=== PATIENT | female | born 1995 | race African-American/Black ===

== ENCOUNTER 2019-04-28 10:55 | Inpatient (IN) | payer OTHER ==
[~2019-04-28] VITALS: Ht 160 cm; Wt 95.3 kg
[2019-04-28] MEDS ORDERED: NALBUPHINE HCL 10 MG/ML AMP IVP PRN (11:00)
[2019-04-28] MEDS ORDERED: TERBUTALINE SULFATE 1 MG/ML VIAL SUBCUT ONE (11:00)
[2019-04-28] MEDS ORDERED: OXYTOCIN/0.9 % SODIUM CHLORIDE 1,000 ML IV SCH (11:00)
[2019-04-28] MEDS ORDERED: LR 1,000 ML IV ONE (11:00)
[2019-04-28 11:33] LABS: BASOPHILS % (AUTO) 0.2 % (0.0-2.0); EOSINOPHILS % (AUTO) 0.1 % (0.0-4.0); HEMATOCRIT 29.8 % (36-48); HEMOGLOBIN 9.7 g/dL (12.0-16.0); LYMPHOCYTES # (AUTO) 1.2 K/uL (1.0-5.5); LYMPHOCYTES % (AUTO) 8.2 % (20.5-51.5); MEAN CORPUSCULAR HEMOGLOBIN 26 pg (27-31); MEAN CORPUSCULAR HGB CONC 33 % (32-36); MEAN CORPUSCULAR VOLUME 78 fL (79.0-98.0); MONOCYTES # (AUTO) 0.9 K/uL (0.0-1.0); MONOCYTES % (AUTO) 6.3 % (1.7-9.3); NEUTROPHILS # (AUTO) 12.1 K/uL (1.8-7.7); NEUTROPHILS % (AUTO) 85.2 % (40.0-70.0); PLATELET COUNT (AUTO) 348 K/uL (130-430); RED BLOOD CELL COUNT(AUTO) 3.81 MIL/uL (4.2-6.2); RED CELL DISTRIBUTION WIDTH 15.3 % (9.0-15.0); WHITE BLOOD COUNT (AUTO) 14.2 K/uL (4.8-10.8)
[2019-04-28] MEDS ORDERED: ROPIVACAINE HCL/PF 0.2% 200 ML ONE (12:20)
[2019-04-28] MEDS ORDERED: fentaNYL CITRATE/PF 100 MCG/2 ML AMP ONE ×2 (12:21→20:53)
[2019-04-28] MEDS: LR 1,000 ML IV SCH ×3 (12:30→20:21)
[2019-04-28] MEDS ORDERED: LR 500 ML IV ONE (12:42)
[2019-04-28] MEDS ORDERED: FENT2mCg/mL-ROPIVA0.2%/NS EPID 200 ML EP SCH (12:45)
[2019-04-28] MEDS ORDERED: fentaNYL CITRATE/PF 100 MCG/2 ML AMP EP ONE (12:45)
[2019-04-28] MEDS ORDERED: ePHEDrine sulfate 50 MG/ML VIAL IVP PRN (12:45)
[2019-04-28] MEDS ORDERED: ROPIVACAINE 40 MG/20 ML AMP EP ONE (16:24)
[2019-04-28 18:28] VITALS: BP_SYST 133
[2019-04-28] MEDS ORDERED: ROPIVACAINE HCL/PF 0.2% 100 ML ONE (20:52)
[2019-04-28] MEDS: ACETAMINOPHEN 325 MG TABLET PO PRN (21:24)
[2019-04-28] MEDS ORDERED: AMPICILLIN SODIUM 2 GM in NS 100 ML IV ONE (21:30)
[2019-04-28] MEDS ORDERED: AMPICILLIN SODIUM 2 GM VIAL ONE (21:35)
[2019-04-28] MEDS ORDERED: ACETAMINOPHEN 325 MG TABLET ONE (21:35)
[2019-04-28] MEDS ORDERED: OXYTOCIN 10 UNIT/ML VIAL IM ONE (22:45)
[2019-04-29] MEDS: AMPICILLIN SODIUM 1 GM in NS 50 ML IV SCH ×3 (01:19→09:24)
[2019-04-29] MEDS: ACETAMINOPHEN 325 MG TABLET PO PRN (01:20)
[2019-04-29] MEDS ORDERED: AMPICILLIN SODIUM 1 GM VIAL ONE ×2 (01:29→05:32)
[2019-04-29] MEDS ORDERED: OXYTOCIN/0.9 % SODIUM CHLORIDE 1,000 ML IV ONE (01:47)
[2019-04-29] MEDS ORDERED: OXYTOCIN/0.9 % SODIUM CHLORIDE 1,000 ML IV SCH (01:47)
[2019-04-29] MEDS ORDERED: DERMOPLAST SPRAY TP PRN (02:00)
[2019-04-29] MEDS ORDERED: HYDROCORTISONE 0.5%, 28.35 GM TOPICAL CREAM TP PRN (02:00)
[2019-04-29] MEDS ORDERED: DIPH-TET-PERTUS Vaccine 0.5 ML VIAL (ADACEL) I.M. PRN (02:00)
[2019-04-29] MEDS ORDERED: SENNOSIDES/DOCUSATE SODIUM 1 TAB TABLET(SENOKOT-S) PO PRN (02:00)
[2019-04-29] MEDS ORDERED: ACETAMINOPHEN 325 MG TABLET PO PRN (02:00)
[2019-04-29] MEDS ORDERED: DOCUSATE SODIUM 100 MG CAPSULE PO PRN (02:00)
[2019-04-29] MEDS ORDERED: ANUSOL 1 EA SUPP.RECT (PREPARATION H) RC PRN (02:00)
[2019-04-29] MEDS ORDERED: MEASLES,MUMPS&RUBELLA VACC/PF 12500 UNIT/0.5 ML VIAL SUBQ PRN (02:00)
[2019-04-29] MEDS ORDERED: OXYCODONE/ACETAMINOPHEN 5-325 TABLET PO PRN (02:00)
[2019-04-29] MEDS ORDERED: LANOLIN 7 GM OINT. TP PRN (02:00)
[2019-04-29] MEDS: IBUPROFEN 600 MG TABLET PO SCH ×3 (05:36→17:45)
[2019-04-29] MEDS: OXYCODONE/ACETAMINOPHEN 5-325 TABLET PO PRN ×2 (17:45→21:05)
[2019-04-30] MEDS: IBUPROFEN 600 MG TABLET PO SCH ×3 (00:10→12:29)
[2019-04-30 08:12] LABS: BASOPHILS % (AUTO) 0.2 % (0.0-2.0); HEMATOCRIT 28.7 % (36-48); HEMOGLOBIN 9.1 g/dL (12.0-16.0); LYMPHOCYTES # (AUTO) 0.6 K/uL (1.0-5.5); LYMPHOCYTES % (AUTO) 4.9 % (20.5-51.5); MEAN CORPUSCULAR HEMOGLOBIN 25 pg (27-31); MEAN CORPUSCULAR HGB CONC 32 % (32-36); MEAN CORPUSCULAR VOLUME 79 fL (79.0-98.0); MONOCYTES # (AUTO) 0.7 K/uL (0.0-1.0); MONOCYTES % (AUTO) 5.8 % (1.7-9.3); NEUTROPHILS # (AUTO) 11.4 K/uL (1.8-7.7); NEUTROPHILS % (AUTO) 89.1 % (40.0-70.0); PLATELET COUNT (AUTO) 287 K/uL (130-430); RED BLOOD CELL COUNT(AUTO) 3.62 MIL/uL (4.2-6.2); RED CELL DISTRIBUTION WIDTH 15.6 % (9.0-15.0); WHITE BLOOD COUNT (AUTO) 12.8 K/uL (4.8-10.8)
== END 2019-04-30 15:25 | disposition home or self-care (01) | DRG 560 ==
LOC: SPU 10:55 → OBSVTOIN 10:55
PROVIDERS: ADMIT Obstetrics & Gynecology; ATTEND Obstetrics & Gynecology
PROC: 10E0XZZ Delivery of Products of Conception, External Approach (ICD-10-PCS; principal; 2019-04-29)
PROC: 3E0R3BZ Introduction of Anesthetic Agent into Spinal Canal, Percutaneous Approach (ICD-10-PCS; 2019-04-29)
PROC: 00HU33Z Insertion of Infusion Device into Spinal Canal, Percutaneous Approach (ICD-10-PCS; 2019-04-29)
DX: O80 Encounter for full-term uncomplicated delivery (principal); Z37.0 Single live birth; Z3A.38 38 weeks gestation of pregnancy
CPT/HCPCS: 36415; 85025; 86592; 86886; 86900; 86901; 90715; J0290; J2590; J2795; J3010; J7120